=== PATIENT | female | born 1955 | race Asian ===

== ENCOUNTER → 2016-07-23 | Outpatient (CLI) | payer OTHER ==
[~2016-07-23] MED LIST: IMAT400T PO; INSU100I13 SC
[2016-07-23 12:16] LABS: BLOOD UREA NITROGEN 12 mg/dL (7-18)
[2016-07-23 12:20] LABS: ASPARTATE AMINO TRANSFERASE 11 U/L (15-37)
[2016-07-23 12:26] LABS: HEMOGLOBIN 6.9 g/dL (11.7-16.4)
[2016-07-23 12:50] LABS: DIFF TOTAL CELLS COUNTED 100 CELL DIFF
[2016-07-23 12:51] LABS: VERIFY COUNTS? YES
[2016-07-23 12:52] LABS: ANISOCYTOSIS 1+; HYPOCHROMIA 1+; MICROCYTOSIS 1+; POIKILOCYTOSIS 1+; POLYCHROMASIA 1+
[2016-07-23 12:54] LABS: SCHISTOCYTES 1+; STOMATOCYTES 1+
== END | disposition home or self-care (01) ==
LOC: STAR 10:18
PROVIDERS: ATTEND Surgery
DX: Z01.818 Encounter for other preprocedural examination (principal); C16.9 Malignant neoplasm of stomach, unspecified; R79.1 Abnormal coagulation profile
CPT/HCPCS: 36415; 80053; 85025; 85610; 93005